=== PATIENT | female | born 1965 | race Two or more races ===

== ENCOUNTER 2021-10-09 14:50 | Outpatient (REF) | payer OTHER, SELFPAY ==
[2021-10-11 11:19] LABS: H Pylori Breath Test Positive (Negative)
== END 2021-10-09 14:51 | disposition home or self-care (01) ==
LOC: HO.LNP 14:50
PROVIDERS: Visit Provider Physician Assistant Surgical
DX: E66.01 Morbid (severe) obesity due to excess calories (principal)
CPT/HCPCS: 83013

== ENCOUNTER 2021-11-02 07:30 | Outpatient (REF) | payer OTHER, SELFPAY ==
--- NOTE | ~2021-11-02 | XR_ITS ---
EXAMINATION: XR CHEST CLINICAL INFORMATION: Morbid obesity due to excess calories COMPARISON: None TECHNIQUE: 2 views of the chest were obtained. FINDINGS: Cardiac silhouette is normal in size. The lungs are well aerated. There is no lobar consolidation. No pleural effusion or pneumothorax. Mild degenerative changes of the spine. XR/XR chest 2V IMPRESSION: No acute pulmonary pathology.
[2021-11-02 08:08] LABS: MANUAL DIFF FLAG NO
[2021-11-02 08:45] LABS: Basophils Percent Auto 0.5 % (0-2); Eosinophils Percent Auto 0.2 % (0-4); Hematocrit 39.6 % (37.0-47.0); Hemoglobin 12.3 g/dl (12.0-16.0); Imm Gran Abs Auto 0.02 X10*3/uL (0.00-0.03); Imm Gran Pct Auto 0.5 % (0.0-0.4); Lymphocytes Absolute Auto 1.5 X10*3/uL (1.2-4.9); Lymphocytes Percent Auto 35.3 % (20-40); Mean Corpuscular HGB Conc 31.1 g/dl (31.0-35.0); Mean Corpuscular Hemoglobin 25.3 pg (27.0-33.0); Mean Corpuscular Volume 81.3 fL (80.0-98.0); Mean Platelet Volume 10.4 fL (9.4-12.3); Monocytes Absolute Auto 0.6 X10*3/uL (0.1-1.2); Monocytes Percent Auto 14.3 % (2-11); Neutrophils Absolute Auto 2.1 x10*3/uL (2.0-8.3); Neutrophils Percent Auto 49.2 % (45-73); Platelet Count 203 X10*3/uL (160-400); Red Blood Count 4.87 X10*6/uL (4.20-5.50); Red Cell Distribution Width 16.4 % (11.0-16.0); White Blood Count 4.3 X10*3/uL (4.8-10.8)
[2021-11-02 09:01] LABS: Estimated Average Glucose 128 mg/dL; Hemoglobin A1c % 6.1 %
[2021-11-02 09:11] LABS: Alanine Aminotransferase 28 U/L (0-31); Albumin Level 4.2 g/dL (3.5-5.0); Alkaline Phosphatase 91 U/L (39-117); Anion Gap 15 (12-20); Aspartate Amino Transferase 26 U/L (5-31); Bilirubin Total 0.7 mg/dL (0.0-1.0); Blood Urea Nitrogen 21 mg/dL (9-16); C Reactive Protein 1.75 mg/dL (< or = 0.50); Calcium 8.9 mg/dL (8.4-10.2); Carbon Dioxide 24 mmol/L (22-29); Chloride 105 mmol/L (96-108); Cholesterol 230 mg/dL; Estimated Glomerular Filt Rate > 60; Glucose Random 91 mg/dL (60-115); HDL Cholesterol 43 mg/dL; Iron 69 mcg/dL (30-160); LDL Cholesterol Calculated 159 mg/dl; Percent Iron Saturation 20 % (15-50); Potassium 3.9 mmol/L (3.3-5.1); Sodium 140 mmol/L (135-145); Total Iron Binding Capacity 351 mcg/dL (228-428); Total Protein 7.6 g/dL (6.5-8.0); Triglycerides 141 mg/dL; Unsaturated Iron Binding 282 ug/dL
[2021-11-02 09:34] LABS: Ferritin 70 ng/mL (10-250); Insulin 16 uU/mL (2-29); TSH reflex Free T4 1.38 uIU/mL (0.32-4.0); Vitamin D 25-OH Total 19.8 ng/mL (>30)
[2021-11-02 09:39] LABS: Folate 13.1 ng/mL (> or = 4.0); Vitamin B12 489 pg/mL (200-900)
[2021-11-03 18:51] LABS: Calcium (PTHI) 9.2 mg/dL (8.6-10.4); PTHI 34 pg/mL (16-77)
[2021-11-06 12:47] LABS: Zinc 92 mcg/dL (60-130)
[2021-11-08 17:51] LABS: Vitamin A 84 mcg/dL (38-98)
[2021-11-09 11:37] LABS: Vitamin B1 11 nmol/L (8-30)
== END 2021-11-02 07:31 | disposition home or self-care (01) ==
LOC: HO.XRAY 07:30
PROVIDERS: Visit Provider Physician Assistant Surgical
DX: E66.01 Morbid (severe) obesity due to excess calories (principal)
CPT/HCPCS: 36415; 71046; 80053; 80061; 82306; 82607; 82728; 82746; 83036; 83525; 83540; 83970; 84425; 84443; 84590; 84630; 85025; 86140

== ENCOUNTER → 2021-11-08 07:25 | Outpatient (REF) | payer OTHER, SELFPAY ==
--- NOTE | 2021-11-08 07:30 | ECG_ITS ---
Test Reason : e66.01 Blood Pressure : / mmHG Vent. Rate : 077 BPM Atrial Rate : 077 BPM P-R Int : 154 ms QRS Dur : 074 ms QT Int : 394 ms P-R-T Axes : 027 009 090 degrees QTc Int : 445 ms Normal sinus rhythm Normal ECG No previous ECGs available Referred By: Jhon Muir Electronically Signed By:ALYSA THRASHER
== END ==
LOC: HO.CARD 07:25
PROVIDERS: PCP Internal Medicine Endocrinology, Diabetes & Metabolism; Visit Provider Physician Assistant Surgical
DX: E66.01 Morbid (severe) obesity due to excess calories (principal)
CPT/HCPCS: 93005; 97802

== ENCOUNTER → 2021-11-13 15:54 | Outpatient (BNVA) | payer OTHER, SELFPAY | PROVIDERS: PCP Internal Medicine Endocrinology, Diabetes & Metabolism; Referring Provider Physician Assistant Surgical; Visit Provider Counselor Mental Health | DX: F43.21 Adjustment disorder with depressed mood (principal); E66.01 Morbid (severe) obesity due to excess calories | CPT/HCPCS: 90791 ==

== ENCOUNTER 2021-11-20 17:56 | Outpatient (REF) | payer OTHER, SELFPAY ==
[2021-11-21 15:58] LABS: H Pylori Breath Test Negative (Negative)
== END 2021-11-20 17:57 | disposition home or self-care (01) ==
LOC: HO.LNP 17:56
PROVIDERS: Visit Provider Physician Assistant Surgical
DX: Z01.818 Encounter for other preprocedural examination (principal)
CPT/HCPCS: 83013

== ENCOUNTER 2021-12-03 08:59 | Outpatient (REF) | payer OTHER, SELFPAY ==
--- NOTE | ~2021-12-03 | FL_ITS ---
EXAMINATION: XR FLUOROSCOPY UPPER GI WITH AIR CLINICAL INFORMATION: Morbid/severe obesity due to excess calories. COMPARISON: None TECHNIQUE: Routine upper GI air-contrast study was performed. FINDINGS: Following oral administration of thick barium and effervescent granules in upright view, there is normal propagation of bolus from the oral cavity through the pharynx, esophagus into stomach without any evidence of obstruction, narrowing or stricture. A small esophageal diverticulum is seen on one image 2/2 RF #2. On placing patient supine and prone lying, the course, caliber and peristalsis of the stomach is normal. There is mild gastroesophageal reflux without hiatal hernia. There is moderate sized diverticula seen in the second segment of the duodenum and proximal jejunum. FLUOROSCOPY TIME: 2.3 minutes DOSE AREA PRODUCT: 36.950 uGy-m2 (microgray-meter squared) FL/FL upper GI w air IMPRESSION: Mild gastroesophageal reflux without hiatal hernia. Small distal esophageal and moderate sized duodenal and proximal jejunal diverticula.
--- NOTE | ~2021-12-03 | US_ITS ---
EXAMINATION: US COMPLETE ABDOMEN WITH LIVER ELASTOGRAPHY CLINICAL INFORMATION: Obesity COMPARISON: None. TECHNIQUE: Real-time imaging of the abdominal viscera. Noninvasive ultrasound liver fibrosis assessment is performed using Damaris ElastPQ point quantification shear wave elastography (2D-SWE) with a C5-2 MHz transducer. Multiple elastography samples are obtained. FINDINGS: PANCREAS: The visualized pancreatic head and body are normal in appearance. The remainder of the pancreas is obscured from visualization by the overlying bowel gas. ABDOMINAL AORTA: The proximal, middle, and distal aortic segments are normal in caliber. INFERIOR VENA CAVA: Visualized portions are normal. LIVER: Liver echotexture is increased. The liver is normal in size and contour.. No focal lesion or intrahepatic biliary duct dilatation. The right lobe measures 16 cm in length. The left lobe measures 11.6 cm in length. Portal flow is normal/hepatopedal Shear wave liver elastography median stiffness is 1.5 m/s (reference: normal median stiffness is 1.3 m/s or less). IQR/median stiffness to assess sampling precision is 0.12 (reference: good quality data set is IQR/median stiffness of 0.15 or less). GALLBLADDER: Gallbladder is normal in size. There are multiple gallstones. The gallbladder wall is normal. COMMON BILE DUCT: Normal in caliber measuring 0.5 cm in diameter. RIGHT KIDNEY: Normal. No hydronephrosis. No renal calculi or focal parenchymal lesions. The kidney measures 11.7 cm in maximum dimension. LEFT KIDNEY: Normal. No hydronephrosis. No renal calculi or focal parenchymal lesions. The kidney measures 11.8 cm in maximum dimension. SPLEEN: Normal. The spleen measures 11.2 cm in maximum dimension. FREE FLUID: None. US/US abdomen comp w elastography IMPRESSION: 1. Impression: Echogenic liver probably representing fatty infiltration. Gallstones. Limited visualization of the tail of the pancreas. 2. Liver elastography: Adequate liver sampling. In the absence of other known clinical signs, rules out compensated advanced chronic liver disease. REFERENCE: Society of Radiologists in Ultrasound Liver Stiffness Thresholds (2019): LIVER STIFFNESS THRESHOLDS: *Liver Stiffness equal or less than 1.3 m/s: High probability of being normal. *Liver Stiffness less than 1.7 m/s: In the absence of other known clinical signs, rules out compensated advanced chronic liver disease. *Liver Stiffness 1.7-2.1 m/s: Suggestive of compensated advanced chronic liver disease but need further test for confirmation. *Liver Stiffness over 2.1 m/s: Rules in compensated advanced chronic liver disease. *Liver Stiffness over 2.4 m/s: Suggestive of clinically significant portal hypertension. QUALITY OF DATA SET: *IQR/Median value equal or less than 0.15 implies a quality data set. *IQR/Median value over 0.15 implies a poor quality data set. SIGNIFICANT CHANGE FROM PRIOR EXAM: Significant change if liver stiffness measurement is 10% or greater from prior exam. OTHER CONSIDERATIONS: The stage of liver fibrosis may be overestimated in the setting of acute hepatitis, liver inflammation, elevated liver function tests, hepatic vascular congestion, obstructive cholestasis, non-fasting state, and infiltrative diseases such as amyloidosis and lymphoma. In some patients with NAFLD, the liver stiffness thresholds for compensated advanced chronic liver disease may be lower. In causes other than viral hepatitis and NAFLD, liver stiffness thresholds are not well established.
== END 2021-12-03 09:00 | disposition home or self-care (01) ==
LOC: HO.US 08:59
PROVIDERS: Visit Provider Physician Assistant Surgical
DX: E66.01 Morbid (severe) obesity due to excess calories (principal)
CPT/HCPCS: 74246; 76705; 76981

== ENCOUNTER 2021-12-23 06:06 | Inpatient (IN) | payer OTHER, SELFPAY ==
[2021-12-18 06:35] LABS: MANUAL DIFF FLAG NO
[2021-12-18 07:31] LABS: Basophils Percent Auto 0.6 % (0-2); Eosinophils Percent Auto 0.3 % (0-4); Hematocrit 40.3 % (37.0-47.0); Hemoglobin 12.4 g/dl (12.0-16.0); Imm Gran Abs Auto 0.01 X10*3/uL (0.00-0.03); Imm Gran Pct Auto 0.3 % (0.0-0.4); Lymphocytes Absolute Auto 1.4 X10*3/uL (1.2-4.9); Lymphocytes Percent Auto 38.7 % (20-40); Mean Corpuscular HGB Conc 30.8 g/dl (31.0-35.0); Mean Corpuscular Hemoglobin 25.6 pg (27.0-33.0); Mean Corpuscular Volume 83.1 fL (80.0-98.0); Mean Platelet Volume 11.6 fL (9.4-12.3); Monocytes Absolute Auto 0.4 X10*3/uL (0.1-1.2); Monocytes Percent Auto 11.8 % (2-11); Neutrophils Absolute Auto 1.7 x10*3/uL (2.0-8.3); Neutrophils Percent Auto 48.3 % (45-73); Platelet Count 210 X10*3/uL (160-400); Red Blood Count 4.85 X10*6/uL (4.20-5.50); Red Cell Distribution Width 14.8 % (11.0-16.0); White Blood Count 3.6 X10*3/uL (4.8-10.8)
[2021-12-18 07:34] LABS: INTERNATIONAL NORM RATIO 1.1 (0.9-1.1); Prothrombin Time 12.8 SEC (10.0-13.1)
[2021-12-18 07:37] LABS: Partial Thromboplastin Time 41.2 SEC (26.0-36.4)
[2021-12-18 07:40] LABS: Estimated Average Glucose 114 mg/dL; Hemoglobin A1c % 5.6 %
[2021-12-18 08:04] LABS: Alanine Aminotransferase 26 U/L (0-31); Albumin Level 4.5 g/dL (3.5-5.0); Alkaline Phosphatase 94 U/L (39-117); Anion Gap 16 (12-20); Aspartate Amino Transferase 31 U/L (5-31); Bilirubin Total 0.8 mg/dL (0.0-1.0); Blood Urea Nitrogen 14 mg/dL (9-16); Calcium 9.6 mg/dL (8.4-10.2); Carbon Dioxide 26 mmol/L (22-29); Chloride 106 mmol/L (96-108); Cholesterol 193 mg/dL; Estimated Glomerular Filt Rate > 60; Glucose Random 78 mg/dL (60-115); HDL Cholesterol 40 mg/dL; LDL Cholesterol Calculated 127 mg/dl; Potassium 4.5 mmol/L (3.3-5.1); Sodium 143 mmol/L (135-145); Total Protein 7.7 g/dL (6.5-8.0); Triglycerides 132 mg/dL
[2021-12-18 08:29] LABS: Insulin 8 uU/mL (2-29); TSH reflex Free T4 2.01 uIU/mL (0.32-4.0)
[2021-12-18 10:47] VITALS: BMI 37.2
--- NOTE | 2021-12-20 09:16 | P.CONAN_ITS ---
Documented by User: Merlyn Alan NP 12/20/21 09:18 HPI - Anesthesia Eval Consult details Narrative: 56yo F for Gastrectomy Sleeve, EGD, possible diaphragmatic hernia, possible ventral hernia, possible open PMFSH Active Problems Active Problems: All Active Problems (Updated 12/18/21 @ 10:45 by Johanna Carl RN) Morbid obesity (Acute) Ulcerative colitis (Acute) Fibromyalgia (Acute) HTN (hypertension) (Acute) Grief reaction (Acute) Obesity (Acute) BMI 38.0-38.9,adult (Acute) Sleep apnea with use of continuous positive airway pressure (CPAP) (Acute) BMI 37.0-37.9, adult (Acute) Sleep apnea (Acute) Past Medical History Medical History Arthritis Fibromyalgia GERD (gastroesophageal reflux disease) HTN (hypertension) Lumbar herniated disc Sleep apnea Ulcerative colitis Family History Family History Mother No problems noted. Father Heart problem High blood pressure Son No problems noted. Daughter No problems noted. Daughter No problems noted. Sister High blood pressure Surgical History Surgical History H/O colonoscopy History of hip surgery Hx of abdominoplasty Hx of shoulder surgery Social History Social History Are you a primary foster care social worker to a significant other at home: No Do you presently have visiting nurse or other home services: No Alcohol intake: current Alcohol intake frequency: does not drink Patient Tobacco Use Status: Never used Tobacco Use of substances other than those prescribed or required for medical reasons: No Have you been hit, kicked, punched, or otherwise hurt by someone within the past year? If so, by whom?: No Are you DNR?: No Advance Directives Information Provided: Yes (brochure mailed) Advance Directives on File: No Recently lost weight without trying: No Eating poorly because of decreased appetite: No Nutrition Risks: No Nutritional Risk Patient : No (post menopausal) FDLMP: N/A : No Poor oral hygiene: No Meds Allergies Allergy/AdvReac Type Severity Reaction Status Date / Time ampicillin Allergy Rash Verified 12/23/21 06:10 Home Medications Medication Instructions Recorded Confirmed Last Taken Type amlodipine 10 mg tablet 10 mg PO DAILY 09/30/21 12/23/21 12/23/21 04:15 History acetaminophen 325 mg tablet 650 mg PO Q6H PRN Pain 12/20/21 12/23/21 12/22/21 History (Tylenol) Exam Exam Date and Time: December 20, 2021 0916 Height,Weight and Vital Signs: Height 5 ft 3 in Weight 95.345 kg Pertinent Lab Results Pertinent Lab Results: Laboratory Tests 12/18/21 12/18/21 12/18/21 06:30 06:34 06:34 WBC 3.6 L RBC 4.85 Hgb 12.4 Hct 40.3 MCV 83.1 MCH 25.6 L MCHC 30.8 L RDW 14.8 Plt Count 210 MPV 11.6 Immature Gran % (Auto) 0.3 Neut % (Auto) 48.3 Lymph % (Auto) 38.7 [place] % (Auto) 11.8 H Eos % (Auto) 0.3 Baso % (Auto) 0.6 Lymph # (Auto) 1.4 [place] # (Auto) 0.4 Eos # (Auto) 0.0 Baso # (Auto) 0.0 Abs Immat Gran (auto) 0.01 Absolute Neuts (auto) 1.7 L Absolute Nucleated RBC 0.000 Nucleated RBC % (auto) 0.0 PT 12.8 INR 1.1 APTT 41.2 H Sodium Potassium Chloride Carbon Dioxide Anion Gap BUN Creatinine Estim Creat Clear Calc Estimated GFR Random Glucose Estimat Average Glucose Hemoglobin A1c % Insulin Level Calcium Total Bilirubin AST ALT Alkaline Phosphatase C-Reactive Protein Total Protein Albumin Triglycerides Cholesterol LDL Cholesterol, Calc HDL Cholesterol TSH Blood Type A Positive Antibody Screen NEGATIVE 12/18/21 12/18/21 06:34 06:34 WBC RBC Hgb Hct MCV MCH MCHC RDW Plt Count MPV Immature Gran % (Auto) Neut % (Auto) Lymph % (Auto) [place] % (Auto) Eos % (Auto) Baso % (Auto) Lymph # (Auto) [place] # (Auto) Eos # (Auto) Baso # (Auto) Abs Immat Gran (auto) Absolute Neuts (auto) Absolute Nucleated RBC Nucleated RBC % (auto) PT INR APTT Sodium 143 Potassium 4.5 Chloride 106 Carbon Dioxide 26 Anion Gap 16 BUN 14 Creatinine 0.93 Estim Creat Clear Calc TNP Estimated GFR > 60 Random Glucose 78 Estimat Average Glucose 114 Hemoglobin A1c % 5.6 Insulin Level 8 Calcium 9.6 D Total Bilirubin 0.8 AST 31 ALT 26 Alkaline Phosphatase 94 C-Reactive Protein 1.10 H Total Protein 7.7 Albumin 4.5 Triglycerides 132 Cholesterol 193 LDL Cholesterol, Calc 127 HDL Cholesterol 40 TSH 2.01 Blood Type Antibody Screen Narrative Narrative: EKG 10/2021 Vent. Rate : 077 BPM ? ? Atrial Rate : 077 BPM ?? P-R Int : 154 ms? QRS Dur : 074 ms ? ? QT Int : 394 ms ? ? ? P-R-T Axes : 027 009 090 degrees ?? QTc Int : 445 ms ? Normal sinus rhythm Normal ECG No previous ECGs available Assessment and Plan Assessment Anesthesia Assessment: Chart Reviewed Documented by User: Camron Alexander MD 12/23/21 07:48 PMFSH Past Medical History Medical History Arthritis Fibromyalgia GERD (gastroesophageal reflux disease) HTN (hypertension) Lumbar herniated disc Sleep apnea Ulcerative colitis Family History Family History Mother No problems noted. Father Heart problem High blood pressure Son No problems noted. Daughter No problems noted. Daughter No problems noted. Sister High blood pressure Family history of problems with anesthesia: No Surgical History Surgical History H/O colonoscopy History of hip surgery Hx of abdominoplasty Hx of shoulder surgery History of Problems with Anesthesia: No Social History Social History Are you a primary foster care social worker to a significant other at home: No Do you presently have visiting nurse or other home services: No Alcohol intake: current Alcohol intake frequency: does not drink Patient Tobacco Use Status: Never used Tobacco Use of substances other than those prescribed or required for medical reasons: No Have you been hit, kicked, punched, or otherwise hurt by someone within the past year? If so, by whom?: No Are you DNR?: No Advance Directives Information Provided: Yes (brochure mailed) Advance Directives on File: No Recently lost weight without trying: No Eating poorly because of decreased appetite: No Nutrition Risks: No Nutritional Risk Patient : No (post menopausal) FDLMP: N/A : No Poor oral hygiene: No Meds Allergies Allergy/AdvReac Type Severity Reaction Status Date / Time ampicillin Allergy Rash Verified 12/23/21 06:10 Home Medications Medication Instructions Recorded Confirmed Last Taken Type amlodipine 10 mg tablet 10 mg PO DAILY 09/30/21 12/23/21 12/23/21 04:15 History acetaminophen 325 mg tablet 650 mg PO Q6H PRN Pain 12/20/21 12/23/21 12/22/21 History (Tylenol) Exam Airway Mallampati Class: II TM Dist: >3cm Neck ROM: Full Loose/Missing/Broken Teeth: No Heart: [id number] Lungs: cta b/l Assessment and Plan Assessment Anesthesia Assessment: Anesthesia Plan Discussed Final Anesthetic Review Family History of Problems with Anesthesia: No History of Problems with Anesthesia: No NPO: Yes ASA Class: III Final Preanesthetic Review: No Changes in Pt Med Stat, Meds/Allgs Chart Reviewed, Consent Obtained/Reviewed and Anes Risks/Benef Reviewed Patient Risk: Intermediate Procedure Risk: Intermediate Assessment/Block/Sedation in SS: Assess/Block/Sedation-SS Anesthetic Plan Anesthetic Plan: GA and Agree w/ Assess. and Plan Disposition: Standard PACU
[2021-12-20 13:00] LABS: IDNOW Serial# 16C4AD1C
[2021-12-20 13:01] LABS: COVID-19 Test Negative (Negative)
--- NOTE | 2021-12-20 20:42 | MHC.SHP ---
Pre-Procedural Eval Section A Date of Service: 12/20/21 The patient is an INPATIENT: Yes The History & Physical has been completed within 30 days and I have reviewed it.: Yes Section B Chief Complaint: Morbid (severe) obesity due to excess calories Relevant Family History (Specify if Yes): No Relevant Social History: None Present Medications: None Medical History: No relevant PMH History of Previous Operations: No relevant previous surgery Allergies: Allergies Allergy/AdvReac Type Severity Reaction Status Date / Time amoxicillin Allergy Intermediate rash/itch Verified 12/20/21 14:09 Review of Systems Sugical H&P ROS: Negative: Constitution, Cardiovascular, Respiratory, Neurological, Psychiatric, Hem-Onc, Allergic/Immunologic, Gastrointestinal, Genitourinary, Musculoskeletal, Integumentary, Endocrine and Eyes/Ears/Nose/Throat Exam Surgical H&P Exam: Normal: HEENT, Normal: Heart, Normal: Lungs, Normal: Extremities, Normal: Abdomen, Normal: Skin and Normal: Neurological Plan Diagnosis/Plan: Unchanged I have reviewed the history and physical and performed a pertinent physical examination on my patient. No changes have occurred unless specified.
[2021-12-23] VITALS (15 sets, daily range): BP systolic 126–145; BP diastolic 62–93; PULSE 70–84; RESP 10–17; TEMP 36.2–36.6; O2SAT 93–98
[2021-12-23] MEDS: Lactated Ringers 1,000 ML 999 ML IV (06:40)
[2021-12-23] MEDS: levoFLOXacin/D5W 500 MG/100 ML PIGGYBACK 100 MG IV (07:38)
--- NOTE | 2021-12-23 08:42 | PHA.MEDREC ---
Pharmacy Consult ? Medication Reconciliation Pharmacy has completed the medication reconciliation.
--- NOTE | 2021-12-23 10:27 | PM.DS ---
DS: Providers Provider Date of Service: 12/24/21 Date of admission: 12/23/21 06:06 Primary care physician: Macario Barton MD DS: Summary Hospital Course Hospital Course: ADMITTING DIAGNOSIS: morbid obesity, paraesophagheal hernia, DEONTE, HTN, fibromyalgia, GERD DISCHARGE DIAGNOSIS: same, s/p laparoscopic sleeve gastrectomy and repair diaphragmatic hernia, excision of mediastinal mass PAST SURGICAL HISTORY: abdominoplasty, hip surgery PROCEDURE: upper endoscopy, laparoscopic sleeve gastrectomy and repair of diaphragmatic hernia hernia and excision of mediastinal mass DISCHARGE SUMMARY: History of Present Illness: The patient is a 56 year-old woman with a BMI of 41.8 kg/m2 and associated co-morbidities as described above. The patient had extensive work-up,lost 22,4 lbs preoperatively and was electively scheduled for laparoscopic, possible open sleeve gastrectomy and gastropexy. Risks and complications of the surgery were discussed with the patient in advance, particularly the possibility of , pulmonary embolism, anastomotic leak, bleeding, bowel injury, GERD, cardiac, renal or pulmonary complications. The patient understood all the risks and was in agreement with the surgical plan. Hospital Course: The patient underwent an uneventful laparoscopic sleeve gastrectomy with gastropexy and repair of diaphragmatic hernia on the day of admission. Postoperatively, the patient was transferred to the surgical floor. The patient received IV Acetaminophen and IV dilaudid for pain control. Patient was started on bariatric phase 1 diet POD #0. On postoperative day one, the patient was feeling well without nausea, vomiting, fevers, or tachycardia. The patient had some mild incisional pain and the abdomen was soft. On the morning of postoperative day one, the patient was continued on 1 ounce of water or ice every half hour. During the day, the patient did fairly well, having some incisional pain, but able to ambulate adequately and to tolerate liquids well. Since the patient is doing well, we decided that the patient was ready to be discharged. The patient was given instructions to follow-up with me next week and to call my office for any fever over 101, persistent abdominal pain, nausea, vomiting, GERD, symptoms of DVT such as calf tenderness, or leg swelling, or pulmonary embolism such as chest pain or shortness of breath. The patient was also instructed to drink 40-60 ounces of liquids per day using the 1-ounce cups. The patient had been given prescriptions for Tylenol for pain, Zofran prn for nausea, and pantoprazole and carafate previously. The patient was encouraged to ambulate and use the incentive spirometer. The patient was allowed to shower, but no baths, and encouraged to stay active at home. All of these instructions were given to the patient personally. All questions were answered and the patient understood all instructions, the instructions were also given to the patient in print. Time Spent with Patient Time attestation: Total time spent providing and/or coordinating discharge services: Discharge coordination time: Less than 30 minutes Quality: Safe Use of Opioids Does Pt have an Active Cancer Diagnosis on the Problem List?: No Quality: Stroke Does the patient have a stroke diagnosis?: No Physical Exam Vital Signs: Vital Signs: Last Vital Signs Temp 97.4 F 12/23/21 06:27 Pulse 70 12/23/21 06:27 Resp 16 12/23/21 06:27 BP 126/62 12/23/21 06:27 Pulse Ox 97 12/23/21 06:27 O2 Del Method 12/23/21 06:27 BMI result Body Mass Index 37.2 DS: Data Data Completed and Pending Pending studies at discharge: Pending at discharge 12/23/21 09:50 Surgical [PTH] Routine Discharge Plan Discharge Anticipated Discharge Date/Time: 12/24/21 10:00 Patient Disposition: Home, Self-Care Discharge Diagnosis: s/p sleeve gastrectomy and hiatal hernia repair Referrals: Macario Barton MD [Primary Care Provider] - 1 Week Discharge Medications: Continued pantoprazole 40 mg tablet,delayed release (DR/EC) 40 mg PO DAILY Qty: 30 2RF sucralfate 100 mg/mL suspension 10 ml PO BID Qty: 400 2RF ondansetron HCl 4 mg tablet 4 mg PO Q12H Qty: 20 0RF acetaminophen [Tylenol] 325 mg tablet 650 mg PO Q6H PRN (Reason: Pain) Held amlodipine 10 mg tablet 10 mg PO DAILY Hold Instructions: Resume on 12/25/21. Check your blood pressure first and let Dr. Farfan know. Don't take the medication before he gets back to you. Don't take the medicine if blood pressure is below 120/80 Discontinued cholecalciferol (vitamin D3) 125 mcg (5,000 unit) capsule 125 mcg PO DAILY Qty: 30 2RF Discharge Orders: Discharge Order (Routine); Ordered 12/24/21 Ordered By: Shamar Farfan Activity on Discharge: No heavy lifting Stand Alone Forms: Patient Portal Discharge page Care Plan Goals: weight loss Health Concerns: morbid obesity Plan of Treatment: No tub baths, sex or returning to work until discussed at first post op appointment. No exercise, alcohol, tobacco or illegal drug use. Continue to use incentive spirometer hourly while awake. Walk in home for 5- 10 minutes every 2 hours during the first week. Continue phase 1 diet today and start phase 2 diet tomorrow morning. Follow all instructions in the bariatric handbook and call with any questions. 1. Please call your doctor or come back to the emergency room should any new symptoms arise. 2. You will receive a courtesy call from [facility] 24-48 hours after discharge. 3. Activity: abstain from alcohol, practice limited stair climbing, no bending, no driving, no exercise, no illicit substances, no lifting, no sex, no tub bath, no work. 4. Diet: continue as discussed with bariatric team.. 5. Dressing Change/Wound Care: Do not change or remove surgical dressings unless they are wet or soiled. 6. Call your doctor if: - Your temperature exceeds 101.5 F - You experience excessive pain or swelling - You have an unexpected reaction to medication - You have excessive bleeding - You experience continued vomiting/nausea - Your incision begins to separate - Your incision shows signs of infection such as increased redness, swelling, excessive pain, heat, or drainage (light blood or clear fluid is normal) 7. General instructions: No lifting greater than 5 lbs for the next 4 weeks[address] driving within 24 hours of taking narcotic pain medications. If you do not move your bowels in the next 2 days, please take milk of magnesia over the counter. Please follow the post op diet and do not advance your diet until you are seen in the office in about 2 weeks. Please walk around your home every hour or two to prevent blood clots from forming in your legs. You do not need to wake from sleeping to walk. Please sleep in a bed or couch to prevent kinking at the hips and knees. Please take your incentive spirometer (your lung buttonhole maker hand) home with you and use it for the next few days to prevent pneumonias. You may shower, no hot tubs, baths or swimming pools. Please call the office with any questions or concerns such as increasing abdominal pain, fever, chills, shortness of breath, chest pain, leg pain or swelling, or redness or drainage from your incisions. Do not hesitate to contact the office with any questions at . The patient's medical history has been reviewed and they are considered low risk for post op DVT and therefore DVT prophylaxis is not considered necessary. Travel after surgery was reviewed. The patient has not disclosed any travel plans during the first 30 days after surgery and they have been advised that within the first 30 days after surgery any bus, plane, train or car travel over 2 hours in duration is contraindicated due to the possibility of developing blood clots from immobility. Any travel, needs to include periods of ambulation of 10 minutes in duration every 2 hours. The patient was instructed to discuss any plans for travel during this period with their bariatric surgeon. Assessment: stable, post op sleeve gastrectomy Discharge Date/Time: 12/24/21 09:23
--- NOTE | 2021-12-23 10:28 | P.BOP_ITS ---
Brief Operative Note Date of Service: 12/23/21 Pre-op diagnosis: Severe obesity with comorbidities (see below) Post-op diagnosis: same (Diaphragmatic hernia and mediastinal mass) Procedure: INITIAL PATIENT BMI ON PRESENTATION AT OUR OFFICE: 41.8 kg/m2 LAST BMI BEFORE SURGERY: 37.9 kg/m2 COMORBIDITIES: sleep apnea, hypertension, anxiety, GERD, DJD, fibromyalgia, esophageal/duodenal/jejunal diverticuli, liver steatosis, cholelithiasis, liver fibrosis ?The patient presented to the Weight Management Program with significant obesity that was negatively impacting the patient's comorbidities as listed above.? The program is a phased program with a special focus on preoperative medical weight management to promote substantial weight loss and prepare the patients for the second phase of the program: bariatric surgery. The patient participated in an intensive weekly lifestyle ?intervention and exercise program during which the patient ?has lost between the initial office visit and the last preoperative visit 22.4 lbs, or 9.48% of initial actual body weight. It was deemed appropriate for the patient to now have bariatric surgery. In light of the current Covid-19 pandemic and the well documented strong association of obesity and increased risk of worse outcomes if infected with Covid-19 (REFERENCES: https://pubmed.ncbi.nlm.nih.gov/97962258/ ,? https://pubmed.ncbi.nlm.nih.gov/00150350/ ), any delay in undergoing bariatric surgery may lead to the patient's worsening health condition and increased?risk of more severe Covid-19 disease if infected. In addition a recent?study from [facility] published in [employer] on 02/25/2021 ([email or web address]) found that, among patients with obesity, substantial weight loss achieved with surgery was associated with improved outcomes of COVID-19 infection. The findings suggest that obesity can be a modifiable risk factor for the severity of COVID-19 infection. In addition, the patient met the BMI-criteria for bariatric surgery based on the BMI on initial presentation. The patient should not be penalized for achieving such weight loss because ?it is not sustainable long-term without surgical intervention and it was achieved in preparation for bariatric surgery ?under my direction and based on my published research ([email or web address] and? https://www.soard.org/article/[email or web address](81)14730-X/pdf ) ?that a 10% preoperative weight loss improves long-term weight loss after surgery and reduces perioperative complications.? Insurance carriers such as [facility] have endorsed my recommendations ?and have included in their policies criteria to include a 10% preoperative weight loss requirement. PROCEDURE: Esophago-gastroscopy, laparoscopic repair of incarcerated diaphragmatic hernia, laparoscopic lysis of adhesions, laparoscopic excision of a mediastinal mass, laparoscopic sleeve gastrectomy and laparoscopic gastropexy INDICATIONS: This is a 56 year-old female who was electively scheduled for laparoscopic, possibly open sleeve gastrectomy. The risks and complications of the procedure were discussed with the patient in advance, particularly the possibility of ; pulmonary embolism; staple line leak; bleeding; GERD; cardiac, pulmonary, or renal complications; as well as long-term problems such as insufficient weight loss, vitamin deficiency, strictures, or ulcers. The patient understood all the risks, and was in agreement to proceed with surgery. DESCRIPTION OF PROCEDURE: After informed consent was obtained from the patient, the patient was given preoperative antibiotics, and was transferred to the operating room. After successful induction of general anesthesia, pneumatic compression devices were placed on both lower extremities. An upper endoscopy was performed next. The oropharynx and esophagus appeared to be within normal limits. There was a diaphragmatic hernia present of moderate size consistent with the findings of the preoperative upper GI. The stomach was entered. Then after all fluid and air were suctioned and the stomach was fully decompressed, the scope was withdrawn and secured in the mid esophagus. The patient was then prepped and draped in the usual sterile manner, and abdominal access was established at the right upper quadrant with the Odalis ever hnique. A 12 mm blunt port was inserted, and the abdomen was insufflated with CO2 to a pressure of 15 mmHg. Under direct visualization, additional ports were placed, specifically two 5 mm Versi-step ports to the left upper quadrant, and a 5 mm Versi-Step port to the right upper quadrant. 1% lidocaine plain was used to infiltrate all port sites as well as all fascia defects. Following that, the patient was placed in a steep reverse Trendelenburg position. An additional 5 mm port was placed to the right flank for the Mediflex retractor that was used to retract the left lobe of the liver. The gastro-esophageal fat pad was opened with the ultrasonic device (Thunderbeat, Olympus) and the anterior esophagus and hiatus were exposed. The angle of His was opened with the ultrasonic device the fundus of the stomach from any diaphragmatic and splenic attachments. I then opened the gastrocolic ligament between the transverse colon and the greater curvature of the stomach with the ultrasonic device to enter the lesser sac and facilitate the ligation of the short gastric vessels. I started at a mid-point along the greater curvature and using the Thunderbeat, all short gastric vessels were divided all the way to the angle of His until the left nitza was completely dissected at its entirety. I then divided the gastro-colic ligament distally to a distance of about 3-4 cm proximal to the pylorus. There were extensive congenital adhesions between the pancreas and posterior gastric wall. Those were lysed completely with the ultrasonic device. Adhesiolysis took approximately 45 min to complete. There was an obvious significant-sized hiatal hernia. I continued dissecting along the hiatus toward the left nitza and the angle of His. I fully mobilized the fat pad that was incarcerated in the hernia. I then continued by dissecting even further into the posterior retro-esophageal space all the way to the angle of His. I continued to mobilize the esophagus into the mediastinum ci rcumferentially. Both vagal nerves were seen and preserved. A 1cm mediastinal mass was identified slightly to the left and anterior esophagus. It was not attached in the esophagus and there was no communication with the esophageal lumen based on intraoperative endoscopy. It was dissected from the gee-esophageal areolar tissue and was excised intact. At that point, I was able to have at least 3 to 5 cm of esophagus into the abdomen.? After I completely mobilized the esophagus from both the left and right nitza and I had a good mobilization of the esophagus circumstantially, I closed the hernia defect with three interrupted #0 Surgidac sutures using the Endo Stitch device, two of which was placed posterior and one of which anterior to the esophagus. ? The stomach was then divided transversely with one Endo NICOLÁS-45 purple, one NICOLÁS- 45 orange load and four NICOLÁS-60 articulating orange loads using the AEON stapler and loads. Every effort was made that the gastric sleeve had a tubular shape and an even caliber throughout. Once the sleeve resection was completed, the staple line of the gastric sleeve was reinforced with Hemoclips. The resected stomach was retrieved without difficulty from the Odalis port. A gastropexy was then performed in order to prevent postoperative GERD and partial gastric volvulus. Several interrupted 2.0 Surgidac sutures were placed between the sleeve's staple line and the previously divided greater omentum and gastro-colic ligament using the Endo-Stitch device. ?An upper endoscopy was performed. There was no narrowing at the GE junction. The scope was easily advanced all the way to the pylorus which was clearly visualized. There was no narrowing anywhere and the sleeve's caliber was even throughout. The sleeve's staple line was inspected and there was no evidence of ischemia, bleeding or dehiscence. At that point the gastroscope was withdrawn from the patient?s mouth while we were decompressing the bowel and the stomach from any remaining air. I looked into the lesser sac to see how the sleeve was situating and it was situating well. There was no bleeding from the staple line, spleen, or short gastric vessels. The Mediflex retractor was removed, and the undersurface of the liver was inspected and there was no bleeding. The patient was placed in supine position. I closed the fascial defect of the 12 mm port site with a figure of eight #1 Polysorb suture. Then 30cc Ropivacaine plain with 10 mg of Dexamethasone were used to infiltrate the fascial closure as well as all skin incisions. A total of 7ml of Zynrelef was applied in the Odalis wound. At this point, the abdomen was deflated, all ports were removed under direct vision, and no bleeding was noted from any of the port sites. The skin incisions were irrigated with saline and w ere closed with 4-0 absorbable monofilament sutures. Steri-Strips and OpSites were used to cover all incisions. The patient was extubated and was transferred in stable condition to the recovery room for further care. I was present and performed all riddle parts of the procedure. Ms. Segovia was the web press operator assistant. There were no residents to assist with this case. Shar Farfan MD, PhD, FACS Surgeon: Shamar Farfan MD Anesthesia: GETA, local and other (TAP block and 7ml Zynrelef) Was an Head Of Precision Targeting used for this Procedure?: Yes Head Of Precision Targeting: Hoda Segovia Estimated blood loss (mL): 10 IV fluids (mL): 2,500 Urine output (mL): 0 (No Chavez to gravity) Pathology: other (1) Stomach, 2) mediastinal mass) Condition: stable Disposition: PACU
--- NOTE | 2021-12-23 10:36 | PM.PNGS ---
Subjective Subjective Date of Service: 12/24/21 Interval history: Patient has mild incisional pain, but was able to ambulate and use the incentive spirometer. She is tolerating phase 1 bariatric diet Physical Exam Vital Signs: Vital Signs: Last Vital Signs Temp 97.5 F 12/23/21 10: Pulse 76 12/23/21 10:27 Resp 11 L 12/23/21 10:27 BP 134/76 12/23/21 10:27 Pulse Ox 97 12/23/21 10:27 O2 Del Method 12/23/21 10:27 BMI result Body Mass Index 37.2 GI: Inspection: Yes normal to inspection, Yes incision (clean, dry and intact) and Yes obesity Palpation (GI): Soft to palpation Extrem: Right lower extremity: normal to inspection (no calf tenderness) Left lower extremity: normal to inspection (no calf tenderness) Objective Data Active Medications Amlodipine Besylate (Amlodipine Besylate 10 Mg Tablet) 10 mg PO DAILY JANEL; Protocol Fentanyl (Fentanyl Citrate/Pf 100 Mcg/2 Ml Vial) 50 mcg IVPUSH Q5M PRN; Protocol PRN Reason: Pain, Moderate (Pain Scale 4-6 Hydromorphone HCl (Hydromorphone Hcl 0.5 Mg/0.5 Ml Syringe) 0.5 mg IVPUSH Q5M PRN; Protocol PRN Reason: Pain, Severe (Pain Scale 7-10) Lactated Ringer's (Lr) 1,000 mls @ 100 mls/hr IVCONT .Q10H JANEL Promethazine HCl 6.25 mg/ (Sodium Chloride) 50.25 mls @ 201 mls/hr IV ONCE PRN PRN Reason: Nausea and Vomiting Ondansetron HCl (Ondansetron Hcl 4 Mg/2 Ml Vial) 4 mg IVPUSH ONCE PRN PRN Reason: Nausea and Vomiting Labs CBC & Chem 7: 12/24/21 05:01 12/24/21 05:01 Procedures Date of Service Date of Service: 12/24/21 Progress Note: A&P Assessment and plan (1) Obesity: Status: Acute (2) BMI 37.0-37.9, adult: Status: Acute (3) Sleep apnea: Status: Acute (4) S/P repair of paraesophageal hernia: Status: Acute (5) Paraesophageal hernia: Status: Acute (6) S/P laparoscopic sleeve gastrectomy: Status: Acute Assessment and Plan: s/p laparoscopic sleeve gastrectomy, lysis of adhesions repair of diaphragmatic hernia, excision of mediastinal mass and gastropexy Doing well Check am labs. If OK, will discharge home? (7) Fibromyalgia: Status: Acute (8) HTN (hypertension): Status: Acute (9) Mediastinal mass: Status: Acute (10) Anxiety: Status: Acute (11) Arthritis: Status: Acute (12) Steatosis, liver: Status: Acute (13) Liver fibrosis: Status: Acute (14) GERD (gastroesophageal reflux disease): Status: Acute (15) Esophagitis determined by endoscopy: Status: Acute Time Spent With Patient Time: Total time spent is greater than 50% in coordination of care (as documented) at patient's floor/unit and/or counseling patient: Quality Stroke Does the patient have a stroke diagnosis?: No VTE Prior VTE?: No VTE Risk Level:: Surgical - moderate VTE Device Contraindication: N/A - Device Ordered VTE Drug Contraindication: Treatment Not Indicated
[2021-12-23] MEDS: Lactated Ringers 1,000 ML 100 ML IVCONT (10:48)
[2021-12-23] MEDS: Famotidine/PF 20 MG/2 ML VIAL IVPUSH ×2 (10:49→21:05)
[2021-12-23 10:54] LABS: Hematocrit 39.2 % (37.0-47.0); Hemoglobin 12.2 g/dl (12.0-16.0)
[2021-12-23 11:12] LABS: Anion Gap 19 (12-20); Blood Urea Nitrogen 15 mg/dL (9-16); Calcium 8.8 mg/dL (8.4-10.2); Carbon Dioxide 20 mmol/L (22-29); Chloride 105 mmol/L (96-108); Creatinine Clr Calc Pharmacy 71.8; Estimated Glomerular Filt Rate > 60; Glucose Random 93 mg/dL (60-115); Potassium 4.4 mmol/L (3.3-5.1); Sodium 140 mmol/L (135-145)
[2021-12-23] MEDS: Metoclopramide HCl 10 MG/2 ML VIAL IVPUSH (11:36)
[2021-12-23] MEDS: ondansetron HCL 4 MG/2 ML VIAL IVPUSH ×2 (18:03→23:18)
--- NOTE | 2021-12-23 19:30 | PC.RT ---
Pt no longer wears CPAP NOC; states she has lost alot of weight and no longer suffers from DEONTE
[2021-12-23] MEDS: Acetaminophen 1,000 MG/100 ML PIGGYBACK 16.7 MG IV (19:37)
[2021-12-24] VITALS: BP 144/79; PULSE 71; RESP 16; TEMP 36.9; O2SAT 94
[2021-12-24] MEDS: Lactated Ringers 1,000 ML 100 ML IVCONT (01:26)
[2021-12-24] MEDS: Acetaminophen 1,000 MG/100 ML PIGGYBACK 16.7 MG IV ×2 (01:26→06:31)
[2021-12-24 04:00] VITALS: BP 139/69; PULSE 74; RESP 16; TEMP 36.1; O2SAT 96
[2021-12-24 06:01] LABS: MANUAL DIFF FLAG NO
[2021-12-24 06:06] LABS: Basophils Percent Auto 0.2 % (0-2); Hematocrit 37.4 % (37.0-47.0); Hemoglobin 11.7 g/dl (12.0-16.0); Imm Gran Abs Auto 0.02 X10*3/uL (0.00-0.03); Imm Gran Pct Auto 0.3 % (0.0-0.4); Lymphocytes Absolute Auto 0.9 X10*3/uL (1.2-4.9); Lymphocytes Percent Auto 15.3 % (20-40); Mean Corpuscular HGB Conc 31.3 g/dl (31.0-35.0); Mean Corpuscular Hemoglobin 25.1 pg (27.0-33.0); Mean Corpuscular Volume 80.1 fL (80.0-98.0); Mean Platelet Volume 11.6 fL (9.4-12.3); Monocytes Absolute Auto 0.5 X10*3/uL (0.1-1.2); Monocytes Percent Auto 7.9 % (2-11); Neutrophils Absolute Auto 4.6 x10*3/uL (2.0-8.3); Neutrophils Percent Auto 76.3 % (45-73); Platelet Count 225 X10*3/uL (160-400); Red Blood Count 4.67 X10*6/uL (4.20-5.50); Red Cell Distribution Width 14.3 % (11.0-16.0); White Blood Count 6.1 X10*3/uL (4.8-10.8)
[2021-12-24 06:20] LABS: Anion Gap 19 (12-20); Blood Urea Nitrogen 10 mg/dL (9-16); Calcium 8.8 mg/dL (8.4-10.2); Carbon Dioxide 20 mmol/L (22-29); Chloride 103 mmol/L (96-108); Creatinine Clr Calc Pharmacy 86.2; Estimated Glomerular Filt Rate > 60; Glucose Random 83 mg/dL (60-115); Potassium 4.4 mmol/L (3.3-5.1); Sodium 138 mmol/L (135-145)
[2021-12-24 07:48] VITALS: O2SAT 99
[2021-12-24 08:00] VITALS: BP 148/73; PULSE 72; RESP 18; TEMP 36.7; O2SAT 99
== END 2021-12-24 09:23 | disposition home or self-care (01) | DRG 619 ==
LOC: HO.SSSA 10:27 → HO.S3 14:30
PROVIDERS: Physician Assistant; Physician Assistant Surgical; Admitting Provider Surgery; PCP Internal Medicine Endocrinology, Diabetes & Metabolism; Visit Provider Surgery
PROC: 0DB64Z3 Excision of Stomach, Percutaneous Endoscopic Approach, Vertical (ICD-10-PCS; CPT 43845; principal; 2021-12-23 07:30)
DX: E66.01 Morbid (severe) obesity due to excess calories (principal); J98.59 Other diseases of mediastinum, not elsewhere classified; K44.0 Diaphragmatic hernia with obstruction, without gangrene; K51.90 Ulcerative colitis, unspecified, without complications; Q43.3 Congenital malformations of intestinal fixation; K21.9 Gastro-esophageal reflux disease without esophagitis; M79.7 Fibromyalgia; G47.33 Obstructive sleep apnea (adult) (pediatric); I10 Essential (primary) hypertension; K57.30 Diverticulosis of large intestine without perforation or abscess without bleeding; K76.0 Fatty (change of) liver, not elsewhere classified; K74.00 Hepatic fibrosis, unspecified; Z68.37 Body mass index [BMI] 37.0-37.9, adult; Z20.822 Contact with and (suspected) exposure to COVID-19; Z88.0 Allergy status to penicillin; Z79.899 Other long term (current) drug therapy
CPT/HCPCS: 36415; 80048; 80053; 80061; 83036; 83525; 84443; 85014; 85018; 85025; 85610; 85730; 86140; 86850; 86900; 86901; 87635; 88305; 88307; 88342; A4649; C9088; J0131; J1100; J1170; J1956; J2250; J2405; J2550; J2765; J2795; J3010

== ENCOUNTER → 2022-02-03 14:55 | Outpatient (REF) | payer OTHER, SELFPAY | LOC: HO.SL 14:55 | PROVIDERS: Visit Provider Nurse Practitioner Family | DX: Z13.89 Encounter for screening for other disorder (principal) ==

== ENCOUNTER → 2022-03-07 14:19 | Outpatient (BNVA) | payer OTHER, SELFPAY | PROVIDERS: PCP Internal Medicine Endocrinology, Diabetes & Metabolism; Visit Provider Nurse Practitioner Family | DX: Z13.89 Encounter for screening for other disorder (principal) ==

== ENCOUNTER → 2022-03-26 11:54 | Outpatient (BNVA) | payer OTHER, SELFPAY | PROVIDERS: PCP Internal Medicine Endocrinology, Diabetes & Metabolism; Visit Provider Physician Assistant Surgical | DX: Z13.89 Encounter for screening for other disorder (principal) ==

== ENCOUNTER → 2022-06-17 16:18 | Outpatient (BNVA) | payer OTHER, SELFPAY | PROVIDERS: PCP Internal Medicine Endocrinology, Diabetes & Metabolism; Visit Provider Physician Assistant Surgical | DX: Z13.89 Encounter for screening for other disorder (principal) ==

== ENCOUNTER 2022-06-21 07:09 | Outpatient (REF) | payer OTHER, SELFPAY ==
[2022-06-21 07:24] LABS: MANUAL DIFF FLAG NO
[2022-06-21 07:44] LABS: Basophils Percent Auto 0.7 % (0-2); Eosinophils Absolute Auto 0.1 X10*3/uL (0.0-0.4); Eosinophils Percent Auto 2.6 % (0-4); Hematocrit 39.4 % (37.0-47.0); Hemoglobin 12.3 g/dl (12.0-16.0); Lymphocytes Absolute Auto 1.9 X10*3/uL (1.2-4.9); Lymphocytes Percent Auto 40.5 % (20-40); Mean Corpuscular HGB Conc 31.2 g/dl (31.0-35.0); Mean Corpuscular Hemoglobin 25.9 pg (27.0-33.0); Mean Corpuscular Volume 82.9 fL (80.0-98.0); Mean Platelet Volume 10.6 fL (9.4-12.3); Monocytes Absolute Auto 0.4 X10*3/uL (0.1-1.2); Monocytes Percent Auto 8.3 % (2-11); Neutrophils Absolute Auto 2.2 x10*3/uL (2.0-8.3); Neutrophils Percent Auto 47.9 % (45-73); Platelet Count 191 X10*3/uL (160-400); Red Blood Count 4.75 X10*6/uL (4.20-5.50); Red Cell Distribution Width 13.7 % (11.0-16.0); White Blood Count 4.6 X10*3/uL (4.8-10.8)
[2022-06-21 08:11] LABS: Anion Gap 14 (12-20); Blood Urea Nitrogen 16 mg/dL (9-16); C Reactive Protein 0.29 mg/dL (< or = 0.50); Calcium 8.9 mg/dL (8.4-10.2); Carbon Dioxide 25 mmol/L (22-29); Chloride 108 mmol/L (96-108); Cholesterol 286 mg/dL; Estimated Glomerular Filt Rate > 60; Glucose Random 80 mg/dL (60-115); HDL Cholesterol 58 mg/dL; Iron 64 mcg/dL (30-160); LDL Cholesterol Calculated 210 mg/dl; Percent Iron Saturation 25 % (15-50); Potassium 3.8 mmol/L (3.3-5.1); Sodium 143 mmol/L (135-145); Total Iron Binding Capacity 251 mcg/dL (228-428); Triglycerides 92 mg/dL; Unsaturated Iron Binding 187 ug/dL
[2022-06-21 08:41] LABS: Ferritin 62 ng/mL (10-250); Folate 16.8 ng/mL (> or = 4.0); TSH reflex Free T4 3.62 uIU/mL (0.32-4.0); Vitamin B12 594 pg/mL (200-900); Vitamin D 25-OH Total 34.4 ng/mL (>30)
[2022-06-25 04:39] LABS: Calcium (PTHI) 7.8 mg/dL (8.6-10.4); PTHI 62 pg/mL (16-77)
[2022-06-26 06:03] LABS: Zinc 82 mcg/dL (60-130)
[2022-06-27 21:03] LABS: Vitamin A 55 mcg/dL (38-98)
[2022-06-29 17:24] LABS: Vitamin B1 14 nmol/L (8-30)
== END 2022-06-21 07:10 | disposition home or self-care (01) ==
LOC: HO.LAB 07:09
PROVIDERS: Visit Provider Physician Assistant Surgical
DX: E66.3 Overweight (principal); Z98.84 Bariatric surgery status
CPT/HCPCS: 36415; 80048; 80061; 82306; 82607; 82728; 82746; 83540; 83970; 84425; 84443; 84590; 84630; 85025; 86140

== ENCOUNTER → 2022-07-16 16:18 | Outpatient (BNVA) | payer OTHER, SELFPAY | PROVIDERS: PCP Internal Medicine Endocrinology, Diabetes & Metabolism; Visit Provider Dietitian, Registered | DX: E66.3 Overweight (principal); Z68.38 Body mass index [BMI] 38.0-38.9, adult; Z71.3 Dietary counseling and surveillance | CPT/HCPCS: 97803 ==

== ENCOUNTER → 2022-09-04 15:02 | Outpatient (BNVA) | payer OTHER, SELFPAY | PROVIDERS: PCP Internal Medicine Endocrinology, Diabetes & Metabolism; Visit Provider Nurse Practitioner Family ==

== ENCOUNTER 2022-09-16 12:30 | Outpatient (AMB) | payer OTHER, SELFPAY ==
--- NOTE | 2022-09-16 12:12 | A.OFFVIS_ITS ---
Intake VS Expanded 09/16/22 12:13 Height 5 ft 3 in Weight 160 lb BMI 28.3 Intake Visit Reasons: (tv) PO LSG 12/23/21 Policy Analyst Required: No Allergies ampicillin Allergy (Verified 09/04/22 15:10) Rash Medication List - Last Reconciled 09/16/22 by JERONIMO Valencia acetaminophen (Tylenol) 650 mg PO Q6H PRN [Fusion MVI and Akil+ D PO] HPI HPI Comments History of Present Illness Details This?a?56?yo female who is s/p LSG without hiatal hernia repair on?12/23/[address] Farfan. Presents for 9 month post op visit. Weight today is 160 pounds, with a BMI of 28.3.? There has been a 75.8 pound weight loss,(initial weight 235.8 pounds) since starting the program on 10/09/21 reflecting a 32.1% total body weight loss and a weight loss of 49.7 pounds since surgery (operative weight 209.7 pounds) reflecting a 23.7% TBWL since surgery.? No complaints of nausea, emesis, abdominal pain or reflux. Reports infrequent but normal bowel movements every 1-2 days and uses stool softeners regularly.? Takes 1 fusion MVI, and Akil +D. She reports that she is satisfied with her weight loss overall but not satisfied with her discipline with her meal plan. She has not been doing the shakes as much. She has not communicated with me and has skipped meals and shakes. She is doing coffee w SF creamer, ZP bar or skip salad w deli meat or turkey, 5 forks protein and 5 forks of veg meal 5 forks/5 forks after dinner snacking on crackers sometimes Drinking 16 oz water, 3 cups coffee daily States her goal weight is to get to her stated goal weight of 140 pounds.? ? Exercise routine includes: weight circuit 400 calories on treadmill 3 days per week. [facility] Medical History Anxiety Arthritis BMI 38.0-38.9,adult Daytime somnolence Fibromyalgia GERD (gastroesophageal reflux disease) Grief reaction HTN (hypertension) Lumbar herniated disc Sleep apnea Snoring Ulcerative colitis Surgical History H/O colonoscopy History of hip surgery Hx of abdominoplasty Hx of shoulder surgery Family History Mother No problems noted. Father Heart problem High blood pressure Son No problems noted. Daughter No problems noted. Daughter No problems noted. Sister High blood pressure Social History Are you a primary care technician to a significant other at home: No Do you presently have visiting nurse or other home services: No Alcohol intake: former Patient Tobacco Use Status: Never used Tobacco Assessment & Plan Assessment & Plan (1) Overweight (BMI 25.0-29.9): Code(s): E66.3 - Overweight Plan: Suggest: Premier protien 1.5 scoops 2 meals 5 forks/5 forks berries in the evening if needed Increase water intake to 40 oz or more decrease coffee to 1 cup in the morning increase exercise to 4-5 days per week if possible Discussed possibly yoga in the evening if she notices anxiety or boredom RTC in late november for 1 year f/u communicate if she wants/needs any changes to meal plans (2) Cholelithiasis: Code(s): K80.20 - Calculus of gallbladder without cholecystitis without obstruction Plan: Known cholelithiasis although asx. Refer to Dr Woods to discuss possible elective cholecystectomy Telehealth Telehealth Location of provider rendering services: practice address Location of patient: other Patient Identification confirmed using: Name, : Yes Telehealth method: voice only Patient verbally consented to treatment: Yes Patient verbally consented to billing insurance company: Yes Patient informed of any privacy concerns related to visit: Yes Minutes spent on Phone/Video with Pt.: 15 Coding Level of Care Code Tele Est Pt Level 3 (70039) Diagnoses Overweight (BMI 25.0-29.9) E66.3 Cholelithiasis K80.20 Time Spent (min) 20
[2022-09-16 12:13] VITALS: BMI 28.3
== END 2022-09-16 12:58 | disposition home or self-care (01) ==
LOC: HO.HBS 12:54
PROVIDERS: PCP Internal Medicine Endocrinology, Diabetes & Metabolism; Visit Provider Physician Assistant Surgical
DX: E66.3 Overweight (principal); Z68.28 Body mass index [BMI] 28.0-28.9, adult; K80.20 Calculus of gallbladder without cholecystitis without obstruction
CPT/HCPCS: 99213

== ENCOUNTER → 2022-09-16 12:30 | Outpatient (BNVA) | payer OTHER, SELFPAY | PROVIDERS: PCP Internal Medicine Endocrinology, Diabetes & Metabolism; Visit Provider Physician Assistant Surgical | DX: E66.3 Overweight (principal); Z98.84 Bariatric surgery status ==

== ENCOUNTER 2023-02-24 08:26 | Outpatient (REF) | payer OTHER, SELFPAY ==
[2023-02-24 09:18] LABS: MANUAL DIFF FLAG NO
[2023-02-24 09:29] LABS: Basophils Percent Auto 0.7 % (0-2); Eosinophils Absolute Auto 0.1 X10*3/uL (0.0-0.4); Eosinophils Percent Auto 3.3 % (0-4); Hematocrit 40.8 % (37.0-47.0); Hemoglobin 12.7 g/dl (12.0-16.0); Imm Gran Abs Auto 0.01 X10*3/uL (0.00-0.03); Imm Gran Pct Auto 0.2 % (0.0-0.4); Lymphocytes Absolute Auto 1.7 X10*3/uL (1.2-4.9); Lymphocytes Percent Auto 38.9 % (20-40); Mean Corpuscular HGB Conc 31.1 g/dl (31.0-35.0); Mean Corpuscular Hemoglobin 26.4 pg (27.0-33.0); Mean Corpuscular Volume 84.8 fL (80.0-98.0); Mean Platelet Volume 10.7 fL (9.4-12.3); Monocytes Absolute Auto 0.4 X10*3/uL (0.1-1.2); Monocytes Percent Auto 8.9 % (2-11); Neutrophils Absolute Auto 2.1 x10*3/uL (2.0-8.3); Platelet Count 216 X10*3/uL (160-400); Red Blood Count 4.81 X10*6/uL (4.20-5.50); Red Cell Distribution Width 13.2 % (11.0-16.0); White Blood Count 4.3 X10*3/uL (4.8-10.8)
[2023-02-24 09:58] LABS: Alanine Aminotransferase 18 U/L (0-31); Alkaline Phosphatase 96 U/L (39-117); Anion Gap 10 (12-20); Aspartate Amino Transferase 32 U/L (5-31); Bilirubin Total 0.9 mg/dL (0.0-1.0); Blood Urea Nitrogen 15 mg/dL (9-16); C Reactive Protein 0.37 mg/dL (< or = 0.50); Calcium 9.4 mg/dL (8.4-10.2); Carbon Dioxide 28 mmol/L (22-29); Chloride 107 mmol/L (96-108); Cholesterol 222 mg/dL (<200); Estimated Glomerular Filt Rate > 60; Glucose Random 86 mg/dL (60-115); HDL Cholesterol 66 mg/dL (>40); Iron 116 mcg/dL (30-160); LDL Cholesterol Calculated 138 mg/dL (<100); Percent Iron Saturation 43 % (15-50); Potassium 4.2 mmol/L (3.3-5.1); Sodium 141 mmol/L (135-145); Total Iron Binding Capacity 270 mcg/dL (228-428); Total Protein 7.3 g/dL (6.5-8.0); Triglycerides 94 mg/dL (<150); Unsaturated Iron Binding 154 ug/dL
[2023-02-24 10:15] LABS: Ferritin 70 ng/mL (10-250); Insulin 3 uU/mL (2-29); TSH reflex Free T4 1.29 uIU/mL (0.32-4.0); Vitamin D 25-OH Total 38.8 ng/mL (>30)
[2023-02-24 10:28] LABS: Folate > 20.0 ng/mL (> or = 4.0)
[2023-02-24 10:49] LABS: Estimated Average Glucose 103 mg/dL; Hemoglobin A1c % 5.2 % (<6.0)
[2023-02-26 14:49] LABS: Vitamin B12 565 pg/mL (200-900)
[2023-02-27 01:53] LABS: Zinc 88 mcg/dL (60-130)
[2023-03-01 13:18] LABS: Vitamin A 55 mcg/dL (38-98)
[2023-03-12 08:26] LABS: Vitamin B1 91
== END 2023-02-24 08:27 | disposition home or self-care (01) ==
LOC: HO.LAB 08:26
PROVIDERS: PCP Internal Medicine Endocrinology, Diabetes & Metabolism; Visit Provider Physician Assistant Surgical
DX: K74.00 Hepatic fibrosis, unspecified (principal); I10 Essential (primary) hypertension; E66.3 Overweight
CPT/HCPCS: 36415; 80053; 80061; 82306; 82607; 82728; 82746; 83036; 83525; 83540; 84425; 84443; 84590; 84630; 85025; 86140

== ENCOUNTER 2023-02-24 08:26 | Outpatient (AMB) | payer OTHER, SELFPAY ==
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
[2023-02-24 08:38] VITALS: BP 146/77; PULSE 62; TEMP 35.8; O2SAT 98; BMI 29.6
== END 2023-02-24 09:07 | disposition home or self-care (01) ==
PROVIDERS: PCP Internal Medicine Endocrinology, Diabetes & Metabolism; Visit Provider Physician Assistant Surgical
DX: E66.3 Overweight (principal)
CPT/HCPCS: 99214

== ENCOUNTER 2023-03-25 09:32 | Outpatient (AMB) | payer OTHER, SELFPAY ==
[2023-03-25 09:33] VITALS: BMI 30.3
--- NOTE | 2023-03-25 09:33 | A.OFFVIS_ITS ---
Intake VS Expanded 03/25/23 09:33 Height 5 ft 3 in Weight 170 lb 12.8 oz BMI 30.3 Intake Visit Reasons: tv PO LSG 12/23/21 Blow Machine Tender Starch Spraying Required: No Allergies ampicillin Allergy (Verified 02/24/23 08:33) Rash Medication List - Last Reconciled 03/25/23 by JERONIMO Valencia acetaminophen (Tylenol) 650 mg PO Q6H PRN [Fusion MVI and Akil+ D PO] tramadol 50 mg PO TID PRN HPI HPI Comments History of Present Illness Details This?a?56?yo female who is s/p LSG without hiatal hernia repair on?12/23/[address] Farfan. Presents for 1 year 3 month post op visit. Weight today is 170.8 pounds, with a BMI of 30.3.? There has been a 65 pound weight loss,(initial weight 235.8 pounds) since starting the program on 10/09/21 reflecting a 27.5% total body weight loss and a weight loss of 38.9 pounds since surgery (operative weight 209.7 pounds) reflecting a 18.5% TBWL since surgery.? No complaints of nausea, emesis, abdominal pain or reflux. Reports infrequent but normal bowel movements every 1-2 days and uses stool softeners regularly.? Takes 1 fusion MVI, and Akil +D. He has been having difficulty over the last 2 months with consistency and snacking when she shouldn't . Not exercising as much. Not following the meal plan consistently. She starts a new job next week and hopes this will provide some schedule. She is doing Premier protein 1.5 scoops shake (premier Protein powder) 1 scoop in 8 oz almond milk faroese yogurt or ZP bar meal 6 forks/6 forks x 2 Drinking 40 oz water daily States her goal weight is to get to her stated goal weight of 140 pounds.? ? Exercise routine includes: none in the last month gym membership . [facility] Medical History (Updated 03/25/23 @ 09:52 by JERONIMO Valencia) Anxiety Daytime somnolence Snoring Lumbar herniated disc Arthritis GERD (gastroesophageal reflux disease) Ulcerative colitis Fibromyalgia HTN (hypertension) BMI 38.0-38.9,adult Sleep apnea Grief reaction Surgical History Hx of laparoscopic partial gastrectomy H/O colonoscopy Hx of abdominoplasty Hx of shoulder surgery History of hip surgery Family History Mother No problems noted. Father Heart problem High blood pressure Son No problems noted. Daughter No problems noted. Daughter No problems noted. Sister High blood pressure Social History Are you a primary skin care consultant to a significant other at home: No Do you presently have visiting nurse or other home services: No Alcohol intake: former Patient Tobacco Use Status: Never used Tobacco Assessment & Plan Assessment & Plan (1) Obesity: Code(s): E66.9 - Obesity, unspecified Qualifiers: Body mass index: BMI 30.0-30.9 Plan: We were able to identify the fact that she is inconsistent due to the inconsistency in her life. She has starting a new job next week and feels as though with that she will be able to apply the meal plan and exercise plan more regularly. She will text me with any questions or concerns. We will have another appointment in approximately 3 weeks to address any issues now that she will be able to recover bit. Telehealth Telehealth Location of provider rendering services: practice address Location of patient: other Patient Identification confirmed using: Name, : Yes Telehealth method: voice only Patient verbally consented to treatment: Yes Patient verbally consented to billing insurance company: Yes Patient informed of any privacy concerns related to visit: Yes Minutes spent on Phone/Video with Pt.: 12 Coding Level of Care Code Tele Est Pt Level 3 (28031) Diagnoses Obesity E66.9 Body mass index: BMI 30.0-30.9 Time Spent (min) 18
== END 2023-03-25 09:52 | disposition home or self-care (01) ==
LOC: HO.HBS 09:32
PROVIDERS: PCP Internal Medicine Endocrinology, Diabetes & Metabolism; Visit Provider Physician Assistant Surgical
DX: E66.9 Obesity, unspecified (principal); Z68.30 Body mass index [BMI] 30.0-30.9, adult
CPT/HCPCS: 99442

== ENCOUNTER → 2023-03-25 09:32 | Outpatient (BNVA) | payer OTHER, SELFPAY | PROVIDERS: PCP Internal Medicine Endocrinology, Diabetes & Metabolism; Visit Provider Physician Assistant Surgical | DX: E66.3 Overweight (principal); K74.00 Hepatic fibrosis, unspecified; I10 Essential (primary) hypertension ==

== ENCOUNTER 2023-04-15 16:24 | Outpatient (AMB) | payer SELFPAY ==
[2023-04-15 10:53] VITALS: BMI 30.5
--- NOTE | 2023-04-15 10:53 | A.OFFVIS_ITS ---
Intake VS Expanded 04/15/23 10:53 Height 5 ft 3 in Weight 172 lb BMI 30.5 Intake Visit Reasons: tv PO LSG 12/23/21 Allergies ampicillin Allergy (Verified 02/24/23 08:33) Rash HPI HPI Comments History of Present Illness Details This?a?56?yo female who is s/p LSG without hiatal hernia repair on?12/23/[address] Farfan. Presents for 1 year 4 month post op visit. Weight today is 172 pounds, with a BMI of 30.5.? There has been a 63.6 pound weight loss,(initial weight 235.8 pounds) since starting the program on 10/09/21 reflecting a 26.9% total body weight loss and a weight loss of 37.5 pounds since surgery (operative weight 209.7 pounds) reflecting a 17.8% TBWL since surgery.? No complaints of nausea, emesis, abdominal pain or reflux. Reports infrequent but normal bowel movements every 1-2 days and uses stool softeners regularly.? Takes 1 fusion MVI, and Akil +D. He has been having difficulty over the last 2 months with consistency and snacking when she shouldn't . She states that she is having difficulty with consistency, not eating right. She started her new job and this has been stressful. Not following meal plan consistently. Has not been having shake in the morning but has had a small meal at lunch but meat and potatoes at night. chips or nuts or popcorn at night. She is doing Premier protein shake (premier Protein powder) 1 scoop in 8 oz almond milk upper sorbian yogurt or ZP bar meal 6 forks/6 forks x 2 Drinking 40 oz water daily States her goal weight is to get to her stated goal weight of 140 pounds.? ? Exercise routine includes: none in the last month gym membership PF. [facility] Medical History (Updated 03/25/23 @ 09:52 by JERONIMO Valencia) Anxiety Daytime somnolence Snoring Lumbar herniated disc Arthritis GERD (gastroesophageal reflux disease) Ulcerative colitis Fibromyalgia HTN (hypertension) BMI 38.0-38.9,adult Sleep apnea Grief reaction Surgical History Hx of laparoscopic partial gastrectomy H/O colonoscopy Hx of abdominoplasty Hx of shoulder surgery History of hip surgery Family History Mother No problems noted. Father Heart problem High blood pressure Son No problems noted. Daughter No problems noted. Daughter No problems noted. Sister High blood pressure Social History Are you a primary care connector to a significant other at home: No Do you presently have visiting nurse or other home services: No Alcohol intake: former Patient Tobacco Use Status: Never used Tobacco Physical Exam Vital Signs: BMI result Body Mass Index 30.5 Assessment & Plan Assessment & Plan (1) Obesity: Code(s): E66.9 - Obesity, unspecified Qualifiers: Body mass index: BMI 30.0-30.9 Plan: We discussed her commitment and lack of consistency. Will try to start e xercising in the morning. Will text me weight weekly and will f/u in the office in 3-4 weeks. Telehealth Telehealth Location of provider rendering services: practice address Location of patient: other Patient Identification confirmed using: Name, : Yes Telehealth method: voice only Patient verbally consented to treatment: Yes Patient verbally consented to billing insurance company: Yes Patient informed of any privacy concerns related to visit: Yes Minutes spent on Phone/Video with Pt.: 12 Coding Level of Care Code Tele Est Pt Level 3 (12886) Diagnoses Obesity E66.9 Body mass index: BMI 30.0-30.9
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
--- OUTSIDE RECORDS SUMMARY | 2023-04-15 16:26 | XMS_ITS | Continuity of Care Document ---
Author Name Unknown Organization [facility] ter Address [address] [place] [id number]- Care Team Providers Care Contract Admin Name Role Phone Macario Barton MD Primary Care Physician Encounter [facility] Date(s): 10/28/22 - 10/28/[address] [address]- Discharge Disposition: A-Error Chart/Home (ED Only) Attending Physician: Not on Staff, Attending MD Admitting Physician: Not on Staff, Admitting MD Referring Physician: Not on Staff, Referring [...] List Condition Confirmation Course Effective Dates Status Health [facility] Informant Severe obesity Confirmed Active Patient Care team information Care Team Personnel Name: Pamela Howard RN Position: [facility] RN Member Role: Primary Care Nurse Name: Macario Barton MD Position: [facility] Physician - Endocrinology Member Role: PCP Address: Address: [address] [place] [address]- Name: Macario Barton MD Position: [facility] Physician - Endocrinology Med Service: Endocrinology Member Role: Primary Care Physician Address: Address: [address] [place] [address]- Care Team Related Persons Name: RIGO HERNANDEZ Address: [facility] [place] [address]
== END 2023-04-15 16:48 | disposition home or self-care (01) ==
LOC: HO.HBS 16:24
PROVIDERS: PCP Internal Medicine Endocrinology, Diabetes & Metabolism; Visit Provider Physician Assistant Surgical
DX: E66.9 Obesity, unspecified (principal)
CPT/HCPCS: 99213

== ENCOUNTER → 2023-04-15 16:24 | Outpatient (BNVA) | payer SELFPAY | PROVIDERS: PCP Internal Medicine Endocrinology, Diabetes & Metabolism; Visit Provider Physician Assistant Surgical | DX: E66.3 Overweight (principal); K74.00 Hepatic fibrosis, unspecified; I10 Essential (primary) hypertension ==

== ENCOUNTER 2023-06-03 16:30 | Outpatient (AMB) | payer BC, SELFPAY ==
--- NOTE | 2023-06-03 12:31 | MHC.OFFVISWM ---
Intake VS Expanded 06/03/23 12:32 Height 5 ft 3 in Weight 171 lb BMI 30.3 Body Fat % 25.5 Body Fat Mass 43.4 Fat Free Mass 127.4 Visceral Fat Rating 12 Body Water % 51.1 Body Water Mass 87 Muscle Mass/Score 119.7 Intake Visit Reasons: (tv) PO LSG 12/23/21 Economics Consultant Required: No Allergies ampicillin Allergy (Verified 02/24/23 08:33) Rash Medication List - Last Reconciled 06/03/23 by JERONIMO Valencia acetaminophen (Tylenol) 650 mg PO Q6H PRN [Fusion MVI and Akil+ D PO] tramadol 50 mg PO TID PRN HPI HPI Comments History of Present Illness Details This?a?56?yo female who is s/p LSG without hiatal hernia repair on?12/23/[address] Farfan. Presents for 1 year 5 month post op visit. Weight today is 171 pounds, with a BMI of 30.3.? There has been a 64.6 pound weight loss,(initial weight 235.8 pounds) since starting the program on 10/09/21 reflecting a 27.1% total body weight loss and a weight loss of 38.5 pounds since surgery (operative weight 209.7 pounds) reflecting a 18% TBWL since surgery.? No complaints of nausea, emesis, abdominal pain or reflux. Reports infrequent but normal bowel movements every 1-2 days and uses stool softeners regularly.? Takes 1 fusion MVI, and Akil +D. She continues with difficulty with consistency. She is doing Premier protein shake (premier Protein powder) 1 scoop in 8 oz almond milk meal 6 forks/6 forks x 2 Drinking 32 oz water daily States her goal weight is to get to her stated goal weight of 140 pounds.? ? Exercise routine includes: none in the last month gym membership . [facility] Medical History (Updated 03/25/23 @ 09:52 by JERONIMO Valencia) Anxiety Daytime somnolence Snoring Lumbar herniated disc Arthritis GERD (gastroesophageal reflux disease) Ulcerative colitis Fibromyalgia HTN (hypertension) BMI 38.0-38.9,adult Sleep apnea Grief reaction Surgical History Hx of laparoscopic partial gastrectomy H/O colonoscopy Hx of abdominoplasty Hx of shoulder surgery History of hip surgery Family History Mother No problems noted. Father Heart problem High blood pressure Son No problems noted. Daughter No problems noted. Daughter No problems noted. Sister High blood pressure Social History Are you a primary field care coordinator to a significant other at home: No Do you presently have visiting nurse or other home services: No Alcohol intake: former Patient Tobacco Use Status: Never used Tobacco Physical Exam Vital Signs: BMI result Body Mass Index 30.3 Assessment & Plan Assessment & Plan (1) Obesity: Code(s): E66.9 - Obesity, unspecified Qualifiers: Body mass index: BMI 30.0-30.9 Plan: Again discussed the importance of consistency. We discussed the importance of exercise and considering changing to a morning workout routine. Additionally, maintaining consistency with the meal plan. We will have her return to the office in approximately 4 weeks. Telehealth Telehealth Location of provider rendering services: practice address Location of patient: address on file Patient Identification confirmed using: Name, : Yes Telehealth method: voice only Patient verbally consented to treatment: Yes Patient verbally consented to billing insurance company: Yes Patient informed of any privacy concerns related to visit: Yes Minutes spent on Phone/Video with Pt.: 12 Coding Level of Care Code Tele Est Pt Level 3 (30402) Diagnoses Obesity E66.9 Body mass index: BMI 30.0-30.9 Time Spent (min) 15
[2023-06-03 12:32] VITALS: BMI 30.3
== END 2023-06-03 17:08 | disposition home or self-care (01) ==
LOC: HO.HBS 16:30
PROVIDERS: PCP Internal Medicine; Visit Provider Physician Assistant Surgical
DX: E66.9 Obesity, unspecified (principal); Z68.30 Body mass index [BMI] 30.0-30.9, adult; Z90.3 Acquired absence of stomach [part of]; Z98.84 Bariatric surgery status
CPT/HCPCS: 99442

== ENCOUNTER → 2023-06-03 16:30 | Outpatient (BNVA) | payer BC, SELFPAY | PROVIDERS: PCP Internal Medicine; Visit Provider Physician Assistant Surgical ==

== ENCOUNTER 2023-08-18 16:24 | Outpatient (AMB) | payer BC, SELFPAY ==
[2023-08-18 08:16] VITALS: BMI 31.1
--- NOTE | 2023-08-18 08:16 | A.OFFVIS_ITS ---
VS Expanded 08/18/23 08:16 Height 5 ft 3 in Weight 175 lb 6.4 oz BMI 31.1 Intake Visit Reasons: (tv) PO LSG 12/23/21 Allergies ampicillin Allergy (Verified 02/24/23 08:33) Rash HPI Comments Details: This?a?58?yo female who is s/p LSG without hiatal hernia repair on?12/23/[address] Farfan. Presents for 1 year 8 month post op visit. Weight today is 175.4 pounds, with a BMI of 31.1.? There has been a 60.4 pound weight loss,(initial weight 235.8 pounds) since starting the program on 10/09/21 reflecting a 25.6% t otal body weight loss and a weight loss of 34.3 pounds since surgery (operative weight 209.7 pounds) reflecting a 16.3% TBWL since surgery.? No complaints of nausea, emesis, abdominal pain or reflux. Reports infrequent but normal bowel movements every 1-2 days and uses stool softeners regularly.? Takes 1 fusion MVI, and Akil +D. She continues with difficulty with consistency. She is doing Premier protein shake (premier Protein powder) 1 scoop in 8 oz almond milk meal 6 forks/6 forks x 2 Drinking 32 oz water daily States her goal weight is to get to her stated goal weight of 140 pounds.? ? Exercise routine includes: none in the last month gym membership [facility] Medical History (Updated 03/25/23 @ 09:52 by JERONIMO Valencia) Anxiety Daytime somnolence Snoring Lumbar herniated disc Arthritis GERD (gastroesophageal reflux disease) Ulcerative colitis Fibromyalgia HTN (hypertension) BMI 38.0-38.9,adult Sleep apnea Grief reaction Surgical History Hx of laparoscopic partial gastrectomy H/O colonoscopy Hx of abdominoplasty Hx of shoulder surgery History of hip surgery Family History Mother No problems noted. Father Heart problem High blood pressure Son No problems noted. Daughter No problems noted. Daughter No problems noted. Sister High blood pressure Social History Are you a primary acute care registered nurse to a significant other at home: No Do you presently have visiting nurse or other home services: No Alcohol intake: former Patient Tobacco Use Status: Never used Tobacco Telehealth Telehealth Telehealth Platform: Telephone Location of provider rendering services: practice address Location of patient: address on file Patient Identification confirmed using: Name, : Yes Telehealth method: voice only Patient verbally consented to treatment: Yes Patient verbally consented to billing insurance company: Yes Patient informed of any privacy concerns related to visit: Yes Minutes spent on Phone/Video with Pt.: 15 Assessment & Plan Assessment & Plan (1) S/P laparoscopic sleeve gastrectomy: Code(s): Z98.84 - Bariatric surgery status Category: Surgical Plan: Patient will use Premier protein powder, 2 scoops in for shake and 1 scoop in 2nd shake. Meal with 6 forks of protein and 6 forks of vegetables. Instructed to resume cardio at the gym with a goal of burning 2000 calories per week. We will arrange for follow-up in 6 weeks' time. Encouraged to text me her weight weekly. Again discussed the importance of changing her behaviors and patterns as she is regaining weight. She agrees that she needs to change and states that she will do so.
== END 2023-08-18 17:15 | disposition home or self-care (01) ==
LOC: HO.HBS 16:24
PROVIDERS: PCP Physician Assistant; Visit Provider Physician Assistant Surgical
DX: E66.9 Obesity, unspecified (principal); Z68.31 Body mass index [BMI] 31.0-31.9, adult; Z90.3 Acquired absence of stomach [part of]; Z98.84 Bariatric surgery status
CPT/HCPCS: 99442

== ENCOUNTER → 2023-08-18 16:24 | Outpatient (BNVA) | payer BC, SELFPAY | PROVIDERS: PCP Physician Assistant; Visit Provider Physician Assistant Surgical | DX: E66.9 Obesity, unspecified (principal) ==